=== PATIENT | male | born 1985 | race Caucasian/White ===

== ENCOUNTER → 2016-12-28 | Outpatient (CLI) | payer BC ==
[2016-12-28 10:49] LABS: BLOOD GAS BASE EXCESS -0.3 mmol/L (-2-2); BLOOD GAS CARBOXYHEMOGLOBIN 2.1 % (0-4); BLOOD GAS HCO3 24 mmol/L (22-26); BLOOD GAS METHEMOGLOBIN 1.3 % (0-2); BLOOD GAS O2 HGB SATURATION 92 % (90-100); BLOOD GAS OXYGEN CONTENT 19.1 Vol % (12.0-20.0); BLOOD GAS PCO2 40 mmHg (38-42); BLOOD GAS PO2 80 mmHg (61-120); BLOOD GAS TOTAL HGB 14.7 G/DL (12.0-16.0); CRITICAL VALUE NO; DRAW SITE RT RADIAL; FIO2 21 %; NUMBER OF ARTERIAL PUNCTURES 1; STAT NO; ULNAR PULSE PRESENT
--- NOTE | 2017-01-02 08:25 | RSPPFT ---
DATE OF PROCEDURE: 12/28/16 COMMENTS: Spirometry with FVC of 5.0, FEV1 of 3.5, FEV1/FVC ratio at 71%. Slow vital capacity is 80% of predicted. TLC is 95%. Diffusion capacity is normal. Room air arterial blood gases show pH of 7.3, PCO2 of 40, PO2 of 80. IMPRESSION: 1. Mild airways obstruction. 2. No airways restriction. 3. Normal diffusion capacity. 4. Adequate oxygenation and alveolar ventilation. 5. Positive and significant response to acutely inhaled bronchodilator.
== END ==
LOC: HRSP 09:54
PROVIDERS: ATTEND Internal Medicine Sleep Medicine
DX: R06.09 Other forms of dyspnea (principal)
CPT/HCPCS: 36600; 82805; 94060; 94726; 94729